=== PATIENT | male | born 1950 | race Caucasian/White ===

== ENCOUNTER 2016-10-13 03:30 | Emergency (ER) | payer BC ==
[2016-10-13 03:21] LABS: BASOPHILS 0.4 %; BASOPHILS ABSOLUTE 0.03 10/3/uL (0.0-0.16); EOSINOPHILS 2.5 %; EOSINOPHILS ABSOLUTE 0.17 10/3/uL (0.0-0.53); HEMATOCRIT 34.8 % (40.0-51.0); HEMOGLOBIN 10.7 g/dL (13.6-17.8); IMMATURE GRANULOCYTES 0.3 %; IMMATURE GRANULOCYTES ABSOLUTE 0.02 10/3/uL (0.0-0.11); LYMPHOCYTES 23.7 %; LYMPHOCYTES ABSOLUTE 1.63 10/3/uL (0.67-4.30); MEAN CORPUS HGB CONC 30.7 g/dL (32.0-36.0); MEAN CORPUSCULAR HEMOGLOB 21.2 pg (26.0-34.0); MEAN PLATELET VOLUME 9.3 fL (9.2-13.0); MONOCYTES 6.6 %; MONOCYTES ABSOLUTE 0.45 10/3/uL (0.21-1.20); NEUTROPHILS 66.5 %; NEUTROPHILS ABSOLUTE 4.57 10/3/uL (2.02-8.40); PLATELET COUNT 275 10/3/uL (150-400); RBC DISTRIBUTION WIDTH 15.6 % (12.0-16.0); RED CELL COUNT 5.04 10/6/uL (4.7-6.1); WHITE BLOOD CELLS 6.9 10/3/uL (4.5-10.5)
[2016-10-13 03:25] LABS: MANUAL DIFF NO %
[~2016-10-13 03:30] MED LIST: DIOV160 PO
[2016-10-13 03:32] LABS: INTERNATIONAL NORMAL RATI 1.1 UNITS (-); PROTIME (NOT ORD) 14.3 SEC (12.0-14.5)
[2016-10-13 03:33] LABS: PARTIAL THROMBO TIME 30.8 SEC (22.5-37.2)
[2016-10-13 03:36] LABS: ALBUMIN 3.7 G/DL (3.5-5.0); BUN (BLOOD UREA NITROGEN) 11 MG/DL (6-23); CALCIUM, SERUM 8.5 MG/DL (8.5-10.4); CHEST PAIN PROFILE TAT 0 Hrs 21 Mins; CHLORIDE, SERUM 107 MMOL/L (96-112); CREATININE 0.92 MG/DL (0.70-1.30); GFR AFRICAN AMERICAN 102 ML/MIN (>=60); GFR NON AFRICAN AMERICAN 88 ML/MIN (>=60); GLUCOSE, SERUM 119 MG/DL (60-99); POTASSIUM, SERUM 3.8 MMOL/L (3.5-5.3); SGOT(AST) 18 U/L (5-40); SGPT(ALT) 29 U/L (5-65); SODIUM, SERUM 142 MMOL/L (135-148); TOTAL BILIRUBIN 0.5 MG/DL (0-1.2); TOTAL PROTEIN 6.7 G/DL (6.0-8.5); TROPONIN I <0.02 NG/ML (<0.05)
[2016-10-13 03:37] LABS: ALKALINE PHOSPHATASE 103 U/L (45-117); CO2 (CARBON DIOXIDE) 25 MMOL/L (24-34); DIRECT BILIRUBIN < 0.1 MG/DL (0.0-0.4); INDIRECT BILIRUBIN(NOT ORDER) 0.4 MG/DL (0.1-0.9)
[2016-10-13 03:44] LABS: ANISOCYTOSIS 1+ (5-10/OIF) (0-5/OIF); RBC MORPHOLOGY ABN (NORMAL)
== END 2016-10-13 03:47 | disposition home or self-care (01) ==
LOC: ER 03:30
PROVIDERS: Emergency Medicine
DX: K29.70 Gastritis, unspecified, without bleeding (principal); I10 Essential (primary) hypertension; K21.9 Gastro-esophageal reflux disease without esophagitis
CPT/HCPCS: 71010; 80048; 80076; 83690; 83735; 84484; 85025; 85610; 85730; 93005; 99284; A9270-GY

== ENCOUNTER 2016-10-29 11:59 | Day surgery (SDC) | payer BC ==
--- NOTE | ~2016-10-29 | OP ---
Record Of Operation [facility] [address] [place]. [address] NAME: KRISTYN HWITEHEAD MD : 54 [place]US : [place] [facility] [place] [id number] AGE: 66 ADM/REG DATE : MR#: [id number] REPORT SERV DATE: 10/29/16 DICTATED BY: FELIPA PALMA DATE: 10/29/16 REPORT STATUS : Draft TRANSCRIBED BY: MODL DATE: 10/29/16 DATE OF PROCEDURE: 10/29/2016 PREOPERATIVE DIAGNOSES: 1. Right neck basal cell carcinoma. 2. Left cheek basal cell carcinoma. POSTOPERATIVE DIAGNOSES: 1. Right neck basal cell carcinoma. 2. Left cheek basal cell carcinoma. PROCEDURE PERFORMED: 1. Wide local excision, right neck basal cell carcinoma. 2. Complex layered closure of 3 x 1.5 cm defect. 3. Wide local excision, left cheek basal cell carcinoma. 4. Complex layered closure of a 1.1 x 0.9 cm defect. SURGEON: Felipa Palma M.D. [employer]ST[employer]ER GENERAL: None. ANESTHESIA: Local. COMPLICATIONS: None. CONDITION: Stable to recovery. INDICATIONS: A 66-year-old male with right neck basal cell carcinoma and left cheek basal cell carcinoma. PROCEDURE IN DETAIL: The patient was identified in the preoperative holding, taken back to the operating room, and placed supine on the operating room table. A time-out was called and the patient and procedure were confirmed. The right neck basal cell was outlined with a surgical marking pen and a 4 to 5 mm margin was measured around this, and it was infiltrated with 3 mL of 1% lidocaine with 1:100,000 epinephrine. The left cheek basal cell carcinoma was outlined with a surgical marking pen as well and a 3-4 mm margin was marked around this and infiltrated subcutaneously with 2 mL of 1% lidocaine with 1:100,000 epinephrine. He was then prepped and draped in the standard fashion for the operation. Using 2.5X loupe magnification and headlight illumination, the operation commenced. A 15-blade was used to make the incision around the right neck basal cell carcinoma and then a needle-tip cautery was used to excise it from the subcutaneous tissues, staying superficial to the platysma. The defect was 3 cm x 1.5 cm. The specimen was sent for frozen section analysis. Frozen section showed clear margins. The defect was then undermined peripherally and Burow triangles were taken at the 3 and 9 Record Of Operation [address] [address] NAME: KRISTYN WHITEHEAD MD : 54 STATUS : [place] [facility] [place] [id number] AGE: 66 ADM/REG DATE : MR#: [id number] REPORT SERV DATE: 10/29/16 DICTATED BY: FELIPA PALMA DATE: 10/29/16 REPORT STATUS : Draft TRANSCRIBED BY: MODL DATE: 10/29/16 o'clock positions. The wound closed in layer with 4-0 Vicryl suture and a 5-0 interrupted Prolene suture, tension free. Steri-Strips were placed. The left cheek was then excised with a 15C blade down to the subcutaneous tissues. It was inked at 12 o'clock and sent for frozen section analysis. Frozen section showed clear margins. The defect was 1.1 x 0.9 cm in dimension. It was undermined peripherally and closed in two layers using 4-0 Vicryl suture and a 5-0 Vicryl suture and a 6-0 interrupted Prolene suture. Burow's triangles were taken at the 10 o'clock and 5 o'clock position. Steri-Strips were placed. The patient was then taken to recovery in stable condition. There were no complications. PH/ARIANNA Felipa Palma M.D. / [id number] CC: Felipa Palma M.D.
== END 2016-11-01 12:03 | disposition home or self-care (01) ==
LOC: SDC 11:59
PROVIDERS: Specialist
PROC: 0JB10ZZ Excision of Face Subcutaneous Tissue and Fascia, Open Approach (ICD-10-PCS; 2016-10-29)
PROC: 0JB40ZZ Excision of Right Neck Subcutaneous Tissue and Fascia, Open Approach (ICD-10-PCS; principal; 2016-10-29 15:15)
DX: C44.41 Basal cell carcinoma of skin of scalp and neck (principal); C44.319 Basal cell carcinoma of skin of other parts of face; Z79.899 Other long term (current) drug therapy
CPT/HCPCS: 88305; 88331